=== PATIENT | female | born 1975 | race Caucasian/White ===

== ENCOUNTER 2021-01-31 13:49 | Emergency (ER) | payer BC ==
[2021-01-31] MEDS ORDERED: Acetaminophen/HYDROcodone 325-5 MG Tab PO ONE (14:22)
[2021-01-31] MEDS ORDERED: Ketorolac 60 MG/2 ML SDV IM ONE (14:22)
--- NOTE | 2021-01-31 14:29 | EDM.PDOC ---
ED HPI GENERAL MEDICAL PROBLEM - General Chief Complaint: General Stated Complaint: RIGHT FOOT PAIN, RIGHT THUMB CUT Time Seen by Provider: 01/31/21 13:52 Source of Information: Reports: Patient History Limitations: Reports: No Limitations - History of Present Illness INITIAL COMMENTS - FREE TEXT/NARRATIVE: HISTORY AND PHYSICAL: History of present illness: The patient is a 45-year-old female who presents to the emergency room with complaints of right foot pain and swelling and right hand laceration that she obtained yesterday while in [place] after falling down some stairs. Patient states that she did hit her head but she had no loss of consciousness, no vomiting, and denies headache. The patient states that she has been able to walk on her foot however she is rating her pain at a 10 out of 10. The patient did not do anything prior to arrival. The patient states that she felt like the swelling increased while she was on the plane. Patient denies any fever, c hills, headache, change in vision, syncope or near syncope. Denies any chest pain, back pain, shortness of breath or cough. Denies any abdominal pain, nausea, vomiting, diarrhea, constipation or dysuria. Has not noted any blood in urine or stool. Patient has been eating and drinking appropriately. Review of systems: As per history of present illness and below otherwise all systems reviewed and n egative. Past medical history: As per history of present illness and as reviewed below otherwise noncontributory. Surgical history: As per history of present illness and as reviewed below otherwise noncontributory. Social history: See social history for further information Family history: As per history of present illness and as reviewed below otherwise noncontributory. Physical exam: General: Well developed and well nourished. Alert and orientated x 3. Nontoxic in appearance and in no acute distress. Vital signs are stable and have been reviewed by me. Nursing notes were reviewed. HEENT: Atraumatic, normocephalic, pupils equal and reactive bilaterally, negative for conjunctival pallor or scleral icterus, mucous membranes moist, TMs normal bilaterally, throat clear, neck supple, nontender, trachea midline. No drooling or trismus noted. No meningeal signs. No hot potato voice noted. Lungs: Clear to auscultation bilaterally. No wheezes, rales, or rhonchi. Chest nontender. Normal work of breathing, no accessory muscles used. Heart: S1S2, regular rate and rhythm without overt murmur, gallops, or rubs. No JVD. No peripheral edema Abdomen: Soft, nondistended, nontender. Normoactive bowel sounds. Negative for masses or costovertebral tenderness. Skin: 2 cm laceration right thumb webbing. No active bleeding. All other skin warm & dry. No lesions or rashes noted. Hematologic: No petechiae or purpra. Mucosa appropriate color and normal nail bed color and refill. Extremities: Right foot with swelling and shortness of breath bluish discoloration. 3+ pedal pulse. Tender to palpation. Moves all other extremities per self without difficulty or deficits, negative for cords or calf pain. Neurovascular unremarkable. Neuro: Awake, alert, oriented. Cranial nerves II through XII unremarkable. Cerebellum unremarkable. Motor and sensory unremarkable throughout. Exam nonfocal. Psychiatric: Mood and affect are appropriate. Normal thought process. Answering questions appropriately. Notes: *This patient was seen and evaluated during the 2019 SARS-CoV-2 novel coronavirus pandemic period. Community viral transmission is ongoing at time of this encounter and the emergency department is operating under pandemic response procedures. As stated above the patient is a 45-year-old female who presents to the emergency room with complaints of right foot swelling and pain and right thumb webbing area laceration that she obtained yesterday after falling down the stairs in [place], [place]. The patient presents today after flying home. The patient's right foot is swollen with bluish discoloration. Replaced pedal pulse. I will obtain a right foot x-ray. I will treat her pain with Toradol injection and [place]. I cut off the patient's third toe ring. Right foot x-ray impression: Fracture navicular and medial cuneiform suggest CT of the foot. Soft tissue swelling dorsum of right foot. I ordered a CT of the right foot. Right foot CT IMPRESSION: 1. Medial cuneiform comminuted nondisplaced fracture with distal articular depression. 2. Middle cuneiform tiny dorsal/distal avulsion fracture 3. Nondisplaced intra-articular fractures of the 3rd and 4th metatarsal bases. I consulted with the zone supervisor firearms Dr. Zamudio who suggested the patient follow-up with him next week and that she to be nonweightbearing. He states that this is important as as of right now this is a nonsurgical however if she bears weight this could be a surgical problem. I have stressed not to the patient. We have applied a posterior ankle splint. The patient had good centimeters as after splint application. I feel that the paperwork for the patient to get a knee scooter. I have given the patient a work note. Please see procedure note. The patient tolerated the laceration well. I have talked with the patient about today's findings, in addition to providing specific details for plan of care. Reassessment at the time of disposition demonstrates that the patient is in no acute distress. The patient is stable for discharge, counseling was provided and we discussed in great detail signs and symptoms that would prompt them to return to the Emergency Department. Medication, follow up and supportive care measures were reviewed and discussed. Voices understanding and is agreeable to plan of care. Denies any further questions or concerns at this time. Diagnostics: Right foot x-ray, right foot CT Therapeutics: Toradol, [place], lidocaine Prescription: [place] to 325/5 every 4 hours as needed Impression: Right thumb laceration, right foot cuneiform fracture, right metata rsal base fracture Plan: 1. You were evaluated today on an emergent basis. Your right thumb laceration was sutured. Keep the area covered when you are working. You can shower after 24 hours but do not submerge the hand in water. 2. Keep the area clean and dry. Continue to monitor for signs of infection. Sutures to be removed in 10 days. 3. Your right foot has several small fractures which were require you to wear a splint and be nonweightbearing. You need to follow-up with Dr. Davis, zone supervisor firearms. It is imperative that you are nonweightbearing. As you will not tolerate crutches due to your right hand laceration you could use a knee scooter. Dr. Davis wanted me to stressed the importance of nonweightbearing as right now this is a probable nonsurgical problem but if you bear weight this could be a surgical problem. 4. Tylenol and/or ibuprofen as needed for pain management. 5. Please follow-up with your primary care provider in the next 1-2 days. Return to the ED as needed and as discussed. 6. You can alternate Tylenol and ibuprofen as needed for pain and fever management. 7. We encourage you to follow up with your primary care provider and/or recommended specialist in the next few days for re-evaluation and further care/management. 8. If your symptoms should worsen, new symptoms develop or any of the signs and symptoms we discussed should arise please return to the emergency room or call 911 (if needed). Definitive disposition and diagnosis as appropriate pending reevaluation and review of above. Right Foot Pain Score (Numeric/FACES): 6 - Related Data Allergies Allergy/AdvReac Type Severity Reaction Status Date / Time No Known Allergies Allergy Verified 01/31/21 14:06 Home Meds: Home Meds Escitalopram [Lexapro] 1 tab PO DAILY 11/28/13 [History] Lisinopril 1 tab PO DAILY 11/28/13 [History] cephALEXin [Keflex] 500 mg PO Q8H 7 Days #21 cap 02/02/21 [Rx] Social & Family History - Tobacco Use Second Hand Smoke Exposure: No - Caffeine Use Caffeine Use: Reports: None ED ROS GENERAL - Review of Systems Review Of Systems: Comprehensive ROS is negative, except as noted in HPI. ED EXAM, GENERAL - Physical Exam Exam: See Below (See dictation) ED GENERAL MEDICAL PROCEDURES - Laceration/Wound Repair Right Hand Lac/wound length in cm: 2.5 Appearance: Subcutaneous Distal NVT: Neuro & Vascular Intact, No Tendon Injury Anesthetic Type: Local Local Anesthesia - Lidocaine (Xylocaine): 1% Plain Local Anesthetic Volume: Other (12) Skin Prep: Chlorhexidine (Hibiciens), Saline Saline irrigation (cc's): 400 Exploration/Debridement/Repair: Wound Explored, In a Bloodless Field, No Foreign Material Found Closed with: Sutures Suture Size: 4-0 # of Sutures: 8 Suture Type: Prolene Sterile Dressing Applied: Nurse Tetanus Status Addressed: Yes Complications: No Course - Vital Signs Last Recorded V/S: Last Vital Signs Temp 97.5 F 01/31/21 14:03 Pulse 89 01/31/21 19:15 Resp 18 01/31/21 19:15 BP 139/82 01/31/21 19:15 Pulse Ox 97 01/31/21 19:15 - Orders/Labs/Meds Meds: Medications Discontinued Medications Generic Name Dose Route Start Last Admin Trade Name Freq PRN Reason Stop Dose Admin Hydrocodone Bitart/Acetaminophen 1 tab 01/31/21 14:22 01/31/21 14:39 Acetaminophen/Hydrocodone 325-5 Mg Tab PO 01/31/21 14:23 1 tab ONETIME ONE Administration Bacitracin 1 dose 01/31/21 18:04 01/31/21 18:46 Bacitracin Oint 1 Gm U/D Packet TOP 01/31/21 18:05 1 dose ONETIME ONE Administration Ketorolac Tromethamine 60 mg 01/31/21 14:22 01/31/21 14:39 Ketorolac 60 Mg/2 Ml Sdv IM 01/31/21 14:23 60 mg ONETIME ONE Administration Lidocaine HCl 5 ml 01/31/21 14:23 01/31/21 14:39 Lidocaine 1% 5 Ml Sdv INJECT 01/31/21 14:24 5 ml ONETIME ONE Administration Lidocaine HCl 5 ml 01/31/21 14:57 01/31/21 16:08 Lidocaine 1% 5 Ml Sdv INJECT 01/31/21 14:58 5 ml ONETIME ONE Administration Lidocaine HCl 5 ml 01/31/21 15:37 01/31/21 16:08 Lidocaine 1% 5 Ml Sdv INJECT 01/31/21 15:38 5 ml ONETIME ONE Administration Departure - Departure Time of Disposition: 18:36 Disposition: Home, Self-Care 01 Condition: Good Clinical Impression: Fracture of medial cuneiform bone of right foot Qualifiers: Encounter type: initial encounter Fracture type: closed Fracture alignment: displaced Qualified Code(s): S92.241A - Displaced fracture of medial cuneiform of right foot, initial encounter for closed fracture Metatarsal bone fracture Qualifiers: Encounter type: initial encounter Metatarsal bone: third Fracture type: closed Fracture alignment: nondisplaced - Discharge Information *PRESCRIPTION DRUG MONITORING PROGRAM REVIEWED*: No *COPY OF PRESCRIPTION DRUG MONITORING REPORT IN PATIENT NOÉ: No Prescriptions: cephALEXin [Keflex] 500 mg PO Q8H 7 Days #21 cap Instructions: Cuneiform Fracture, Metatarsal Fracture Referrals: Pascual Douglas MD [Primary Care Provider] - Forms: ED Department Discharge Additional Instructions: The following information is given to patients seen in the emergency department who are being discharged to home. This information is to outline your options for follow-up care. We provide all patients seen in our emergency department with a follow-up referral. The need for follow-up, as well as the timing and circumstances, are variable depending upon the specifics of your emergency department visit. If you don't have a primary care physician on staff, we will provide you with a referral. We always advise you to contact your personal physician following an emergency department visit to inform them of the circumstance of the visit and for follow-up with them and/or the need for any referrals to a consulting specialist. The emergency department will also refer you to a specialist when appropriate. This referral assures that you have the opportunity for follow-up care with a specialist. All of these measure are taken in an effort to provide you with optimal care, which includes your follow-up. Under all circumstances we always encourage you to contact your private physician who remains a resource for coordinating your care. When calling for follow-up care, please make the office aware that this follow-up is from your recent emergency room visit. If for any reason you are refused follow-up, please contact the [facility] Emergency Department at and asked to speak to the emergency department charge nurse. [facility] - [facility] [address] [place] [address] [place] [address] Plan: 1. You were evaluated today on an emergent basis. Your right thumb laceration was sutured. Keep the area covered when you are working. You can shower after 24 hours but do not submerge the hand in water. 2. Keep the area clean and dry. Continue to monitor for signs of infection. Sutures to be removed in 10 days. 3. Your right foot has several small fractures which were require you to wear a splint and be nonweightbearing. You need to follow-up with Dr. Davis, zone supervisor firearms. It is imperative that you are nonweightbearing. As you will not tolerate crutches due to your right hand laceration you could use a knee scooter. Dr. Davis wanted me to stressed the importance of nonweightbearing as right now this is a probable nonsurgical problem but if you bear weight this could be a surgical problem. 4. Tylenol and/or ibuprofen as needed for pain management. 5. Please follow-up with your primary care provider in the next 1-2 days. Return to the ED as needed and as discussed. 6. You can alternate Tylenol and ibuprofen as needed for pain and fever management. 7. We encourage you to follow up with your primary care provider and/or recommended specialist in the next few days for re-evaluation and further ca re/management. 8. If your symptoms should worsen, new symptoms develop or any of the signs and symptoms we discussed should arise please return to the emergency room or call 911 (if needed). Sepsis Event Note (ED) - Evaluation Sepsis Screening Result: No Definite Risk
--- NOTE | 2021-01-31 15:26 | CR ---
INDICATION: Fell down the stairs; pain right foot . Comparison :none. TECHNIQUE: Two-view study right foot. FINDINGS: Fracture involving the navicular bone and possibly the medial cuneiform. Diffuse soft tissue swelling along the dorsum of the foot. Suggest obtaining a CT of the mid foot for further assessment . Impression: Fracture navicular and medial cuneiform; suggest CT of the midfoot. 1. Soft tissue swelling dorsum of the right foot. Dictated by Willie Kimbrough MD @ 01/31/2021 3:23:56 PM (Electronically Signed)
[2021-01-31] MEDS ORDERED: Bacitracin Oint 1 GM U/D Packet TOP ONE (18:04)
--- NOTE | 2021-01-31 18:10 | CT ---
INDICATION: Fall. TECHNIQUE: Right foot CT without intravenous contrast. Coronal and sagittal formats. COMPARISON: Same day radiographs. FINDINGS: Medial cuneiform comminuted nondisplaced fracture with depression of the distal articular surface measuring up to 5 mm in depth and 11 x 9 mm in cross-sectional diameter (sagittal image 79 and coronal image 100). Tiny avulsion fracture arising from the distal dorsal aspect of the middle cuneiform (sagittal image 54). Elongated corticated ossicle along the medial aspect of the navicular is favored to represent an os navicularis. Third metatarsal base nondisplaced intra-articular fracture (reference sagittal image 42). Fourth metatarsal base nondisplaced intra-articular fracture (reference sagittal image 33). Tiny os ossific fragment interposed between the 2nd and 3rd metatarsal bases (short axis image 370), with unclear donor site. No dislocation or additional displaced fracture identified. Small bidirectional calcaneal enthesophytes. Soft tissue edema predominating over the dorsal midfoot and forefoot. IMPRESSION: 1. Medial cuneiform comminuted nondisplaced fracture with distal articular depression. 2. Middle cuneiform tiny dorsal/distal avulsion fracture 3. Nondisplaced intra-articular fractures of the 3rd and 4th metatarsal bases. Distribution of injuries raise the possibility of Lisfranc ligamentous injury. Orthopedic consultation recommended. Dictated by Reji Borges MD @ 01/31/2021 6:08:30 PM Please note that all CT scans at this facility use dose modulation, iterative reconstruction, and/or weight-based dosing when appropriate to reduce radiation dose to as low as reasonably achievable. Dictated by: Reji Borges MD @ 01/31/2021 18:08:40 (Electronically Signed)
== END 2021-01-31 19:15 | disposition home or self-care (01) ==
LOC: MW.ED 13:49
DX: S92.244A Nondisplaced fracture of medial cuneiform of right foot, initial encounter for closed fracture (principal); S92.334A Nondisplaced fracture of third metatarsal bone, right foot, initial encounter for closed fracture; S92.344A Nondisplaced fracture of fourth metatarsal bone, right foot, initial encounter for closed fracture; S61.011A Laceration without foreign body of right thumb without damage to nail, initial encounter; W10.9XXA Fall (on) (from) unspecified stairs and steps, initial encounter
CPT/HCPCS: 12001; 29125; 73620; 73700; 96372; 99284; A9270; J1885